=== PATIENT | female | born 1990 | race Caucasian/White ===

== ENCOUNTER 2019-11-05 19:48 | Emergency (ER) | payer SELFPAY ==
[~2019-11-05] VITALS: Ht 167.6 cm; Wt 136.1 kg
[2019-11-05 20:48] LABS: BASO # 0.1 10*3/uL (0.0-0.1); BASO % 0.7 % (0.0-1.0); EOS # 0.5 10*3/uL (0.0-0.4); EOS % 4.5 % (1.0-4.0); HEMATOCRIT 44.7 % (37.0-47.0); HEMOGLOBIN 15.1 g/dl (12.0-16.0); LYMPH # 4.2 10*3/uL (1.3-4.4); LYMPH % 40.3 % (27.0-41.0); MEAN CELL VOLUME 93.9 fl (81.0-99.0); MEAN CORPUSCULAR HGB 31.7 pg (27.0-31.0); MEAN CORPUSCULAR HGB CONC 33.8 g/dl (33.0-37.0); MEAN PLATELET VOLUME 9.1 fl (9.6-12.3); MONO # 0.8 10*3/uL (0.1-1.0); MONO % 7.6 % (3.0-9.0); NEUT # 4.8 10*3/uL (2.3-7.9); NEUT % 46.7 % (47.0-73.0); PLATELET COUNT AUTOMATED 353 10*3/uL (130-400); RED BLOOD COUNT 4.76 10*6/uL (4.10-5.10); RED CELL DISTRI WIDTH 12.4 % (0-14.5); WHITE BLOOD COUNT 10.3 10*3/uL (4.8-10.8)
[2019-11-05 20:50] LABS: BILIRUBIN NEGATIVE (NEGATIVE); BLOOD 3+ (NEGATIVE); CLARITY CLEAR (CLEAR); COLOR YELLOW (YELLOW); GLUCOSE NEGATIVE (NEGATIVE); KETONE NEGATIVE (NEGATIVE); LEUKO ESTERASE 2+ (NEGATIVE); NITRITE NEGATIVE (NEGATIVE); SPECIFIC GRAVITY 1.025 (1.005-1.030); UROBILINOGEN 0.2 E.U./dl (0.2-1.0)
[2019-11-05 20:53] LABS: RBC 51-100 rbc/hpf (0-2); WBC 21-30 wbc/hpf (0-5)
[2019-11-05 20:54] LABS: BACTERIA 1+
[2019-11-05 20:59] LABS: ACT PARTIAL THROMBO TIME 26.7 SECONDS (20.0-32.1)
[2019-11-05 21:05] LABS: ALBUMIN 3.9 gm/dl (3.1-4.5); ALKALINE PHOSPHATASE 60 U/L (45-117); BUN 10 mg/dl (7-24); CHLORIDE 107 mmol/L (98-107); CREATININE 0.81 mg/dL (0.55-1.02); LIPASE 84 U/L (73-393); POTASSIUM 4.1 mmol/L (3.5-5.1); SGOT/AST 16 IU/L (3-35); SGPT/ALT 31 U/L (12-78); SODIUM 139 mmol/L (136-145)
[2019-11-05] MEDS ORDERED: ZITHROMAX250 MG PO (23:34)
[2019-11-05] MEDS ORDERED: Motrin,Rufen800 MG PO (23:34)
[2019-11-09 18:06] LABS: GONOCOCCUS BY NAA Negative (Negative)
[2019-11-11] MEDS ORDERED: CIPRO250 MG PO (09:00)
== END 2019-11-05 23:41 | disposition home or self-care (01) ==
LOC: ED 19:48
PROVIDERS: Internal Medicine
DX: N39.0 Urinary tract infection, site not specified (principal); N93.9 Abnormal uterine and vaginal bleeding, unspecified; R63.5 Abnormal weight gain

== ENCOUNTER 2019-12-14 22:58 | Emergency (ER) | payer SELFPAY ==
[~2019-12-14] VITALS: Ht 170.1 cm; Wt 136.1 kg
[~2019-12-14 22:58] MED LIST: CIPRO250 MG PO; Motrin,Rufen800 MG PO; ZITHROMAX250 MG PO
[2019-12-14] MEDS ORDERED: NAPROXEN500 MG PO (23:02)
[2019-12-14 23:34] LABS: BILIRUBIN NEGATIVE (NEGATIVE); BLOOD 3+ (NEGATIVE); CLARITY CLEAR (CLEAR); COLOR YELLOW (YELLOW); GLUCOSE NEGATIVE (NEGATIVE); KETONE NEGATIVE (NEGATIVE)
[2019-12-14 23:35] LABS: LEUKO ESTERASE NEGATIVE (NEGATIVE); NITRITE NEGATIVE (NEGATIVE); UROBILINOGEN 0.2 E.U./dl (0.2-1.0)
[2019-12-14 23:36] LABS: BASO % 0.2 % (0.0-1.0); HEMATOCRIT 42.3 % (37.0-47.0); HEMOGLOBIN 14.5 g/dl (12.0-16.0); LYMPH # 1.5 10*3/uL (1.3-4.4); LYMPH % 11.3 % (27.0-41.0); MEAN CELL VOLUME 91.6 fl (81.0-99.0); MEAN CORPUSCULAR HGB 31.4 pg (27.0-31.0); MEAN CORPUSCULAR HGB CONC 34.3 g/dl (33.0-37.0); MEAN PLATELET VOLUME 9.7 fl (9.6-12.3); MONO # 0.2 10*3/uL (0.1-1.0); MONO % 1.2 % (3.0-9.0); NEUT # 11.2 10*3/uL (2.3-7.9); NEUT % 86.5 % (47.0-73.0); PLATELET COUNT AUTOMATED 420 10*3/uL (130-400); RED BLOOD COUNT 4.62 10*6/uL (4.10-5.10); RED CELL DISTRI WIDTH 12.3 % (0-14.5)
[2019-12-14 23:36] LABS: BACTERIA TRACE; RBC 31-40 rbc/hpf (0-2)
[2019-12-14 23:49] LABS: ALBUMIN 3.4 gm/dl (3.1-4.5); ALKALINE PHOSPHATASE 95 U/L (45-117); BUN 19 mg/dl (7-24); CHLORIDE 107 mmol/L (98-107); CREATININE 1.21 mg/dL (0.55-1.02); POTASSIUM 3.9 mmol/L (3.5-5.1); SGOT/AST 35 IU/L (3-35); SGPT/ALT 22 U/L (12-78); SODIUM 135 mmol/L (136-145); TOTAL PROTEIN 8.4 gm/dL (6.4-8.2)
[2019-12-15 04:41] LABS: ABG BASE EXCESS -4.6 mmol/L (-2.0-2.0); ARTERIAL BLOOD GAS PH 7.416 (7.35-7.45)
== END 2019-12-15 04:50 | disposition short-term general hospital (02) ==
LOC: ED 22:58
PROVIDERS: Emergency Medicine
DX: R06.03 Acute respiratory distress (principal); F17.200 Nicotine dependence, unspecified, uncomplicated; Z79.899 Other long term (current) drug therapy

== ENCOUNTER 2019-12-31 22:52 | Emergency (ER) | payer OTHER ==
[~2019-12-31] VITALS: Ht 167.6 cm; Wt 123.8 kg
[~2019-12-31 22:52] MED LIST changes: +NAPROXEN500 MG PO
[2019-12-31] MEDS ORDERED: PHOSPHA 250 NE250 MG PO (23:14)
[2019-12-31] MEDS ORDERED: OXYCODONE HCL10 M1 PO (23:15)
[2019-12-31] MEDS ORDERED: DECADRON4 MG PO (23:16)
[2019-12-31] MEDS ORDERED: VITAMIN D250 MCG PO (23:17)
[2019-12-31] MEDS ORDERED: PROCHLORPERAZIN10 MG PO (23:19)
[2019-12-31] MEDS ORDERED: OXYBUTYNIN5 MG PO (23:20)
[2019-12-31] MEDS ORDERED: ALLOPURINOL300 MG PO (23:20)
[2019-12-31] MEDS ORDERED: SENNA8.6 MG PO (23:20)
[2019-12-31] MEDS ORDERED: ONDANSETRON4 MG SL (23:21)
[2020-01-01 01:12] LABS: MEAN CELL VOLUME 90.7 fl (81.0-99.0); MEAN CORPUSCULAR HGB 31.4 pg (27.0-31.0); MEAN CORPUSCULAR HGB CONC 34.6 g/dl (33.0-37.0); MEAN PLATELET VOLUME 12.2 fl (9.6-12.3); PLATELET COUNT AUTOMATED 100 10*3/uL (130-400); RED CELL DISTRI WIDTH 12.5 % (0-14.5); WHITE BLOOD COUNT 2.6 10*3/uL (4.8-10.8)
[2020-01-01 01:21] LABS: BUN 10 mg/dl (7-24); CHLORIDE 97 mmol/L (98-107); CREATININE 0.75 mg/dL (0.55-1.02); POTASSIUM 3.8 mmol/L (3.5-5.1); SODIUM 132 mmol/L (136-145)
[2020-01-01 01:33] LABS: ATYPICAL LYMPHS 5 % (0-0); PLATELET SUFFICIENCY LOW (NORMAL); TOTAL CELLS COUNTED 100 #CELLS
== END 2020-01-01 10:49 | disposition short-term general hospital (02) ==
LOC: ED 22:52
PROVIDERS: Internal Medicine
DX: B00.2 Herpesviral gingivostomatitis and pharyngotonsillitis (principal); D70.1 Agranulocytosis secondary to cancer chemotherapy; C76.0 Malignant neoplasm of head, face and neck; C79.89 Secondary malignant neoplasm of other specified sites; Z79.899 Other long term (current) drug therapy; Z79.2 Long term (current) use of antibiotics

== ENCOUNTER 2022-03-14 23:15 | Emergency (ER) | payer OTHER ==
[~2022-03-14 23:15] MED LIST changes: +ALLOPURINOL300 MG PO; +DECADRON4 MG PO; +ONDANSETRON4 MG SL; +OXYBUTYNIN5 MG PO; +OXYCODONE HCL10 M1 PO; +PHOSPHA 250 NE250 MG PO; +PROCHLORPERAZIN10 MG PO; +SENNA8.6 MG PO; +VITAMIN D250 MCG PO
[2022-03-15] MEDS ORDERED: AMOXICILLIN500 M3 PO (01:11)
== END 2022-03-15 01:36 | disposition home or self-care (01) ==
LOC: ED 23:15
DX: K08.89 Other specified disorders of teeth and supporting structures (principal); Z79.899 Other long term (current) drug therapy; F17.200 Nicotine dependence, unspecified, uncomplicated

== ENCOUNTER 2022-05-02 11:01 | Emergency (ER) | payer OTHER ==
[~2022-05-02] VITALS: Wt 136.1 kg
[~2022-05-02 11:01] MED LIST changes: +AMOXICILLIN500 M3 PO
[2022-05-02 11:58] LABS: BILIRUBIN Negative (Negative); BLOOD Negative (Negative); CLARITY Clear (Clear); COLOR Yellow (Yellow); GLUCOSE Negative (Negative); KETONE Negative (Negative); LEUKO ESTERASE Negative (Negative); NITRITE Negative (Negative); UROBILINOGEN 0.2 E.U./dl (0.0-1.0)
[2022-05-02 12:12] LABS: BASO % 0.5 % (0.0-1.0); EOS # 0.2 10*3/uL (0.0-0.4); EOS % 2.4 % (1.0-4.0); LYMPH # 2.6 10*3/uL (1.3-4.4); MEAN CELL VOLUME 98.2 fl (81.0-99.0); MEAN CORPUSCULAR HGB 33.3 pg (27.0-31.0); MEAN PLATELET VOLUME 9.3 fl (9.6-12.3); MONO # 0.6 10*3/uL (0.1-1.0); MONO % 6.8 % (3.0-9.0); NEUT # 5.3 10*3/uL (2.3-7.9); NEUT % 60.1 % (47.0-73.0); PLATELET COUNT AUTOMATED 234 10*3/uL (130-400); RED BLOOD COUNT 4.38 10*6/uL (4.10-5.10); RED CELL DISTRI WIDTH 12.8 % (0-14.5); WHITE BLOOD COUNT 8.8 10*3/uL (4.8-10.8)
[2022-05-02 12:14] LABS: WBC 0-2 wbc/hpf (0-5)
[2022-05-02 12:15] LABS: BACTERIA TRACE
[2022-05-02 12:31] LABS: ALKALINE PHOSPHATASE 58 U/L (45-117); BUN 13 mg/dl (7-24); CHLORIDE 105 mmol/L (98-107); CREATININE 0.94 mg/dL (0.55-1.02); LIPASE 84 U/L (73-393); POTASSIUM 3.8 mmol/L (3.5-5.1); SGOT/AST 18 IU/L (3-35); SGPT/ALT 34 U/L (12-78); SODIUM 139 mmol/L (136-145); TOTAL PROTEIN 7.6 gm/dL (6.4-8.2)
[2022-05-02] MEDS ORDERED: ONDANSETRON4 MG SL (13:44)
[2022-05-02] MEDS ORDERED: PROTONIX40 MG PO (13:44)
== END 2022-05-02 13:49 | disposition home or self-care (01) ==
LOC: ED 11:01
PROVIDERS: Nurse Practitioner Family
DX: K29.70 Gastritis, unspecified, without bleeding (principal); Z79.899 Other long term (current) drug therapy